=== PATIENT | male | born 1990 | race Caucasian/White ===

== ENCOUNTER → 2023-12-02 09:28 | Outpatient (REF) | payer OTHER, SELFPAY | LOC: HWRAD 09:28 | PROVIDERS: ATTENDING PHYSICIAN Internal Medicine Gastroenterology; FAMILY PHYSICIAN Family Medicine | DX: R74.8 Abnormal levels of other serum enzymes (principal) | CPT/HCPCS: 76700 ==

== ENCOUNTER 2024-05-29 12:13 | Emergency (ER) | payer OTHER, SELFPAY ==
[2024-05-29 12:20] VITALS: BP 141/97
[2024-05-29 12:49] LABS: % Basophils 0.5 % (0-2); % Eosinophils 1.1 % (0-6); % Immature Granulocytes 0.2 % (0-0.5); % Lymphocytes 40.9 % (20.5-51.1); % Monocytes 4.8 % (1.7-9.3); % Neutrophils 52.5 % (42.2-75.2); Absolute Basophils 0.1 10^3/uL (0-0.2); Absolute Eosinophils 0.1 10^3/uL (0-0.7); Absolute Lymphocytes 4.1 10^3/uL (1.2-3.4); Absolute Monocytes 0.5 10^3/uL (0.1-0.6); Absolute Neutrophils 5.2 10^3/uL (1.4-6.5); Hematocrit 43.7 % (39.0-52.0); Hemoglobin 15.5 g/dL (13.0-18.0); Mean Corp Hgb Conc. 35.5 g/dL (33.0-37.0); Mean Corpuscular Volume 84.7 fL (80.0-94.0); Mean Platelet Volume 9.1 fL (7.4-10.4); Nucleated Red Blood Cells % 0 % (-); Platelet Count 321 10^3/uL (130-400); Red Blood Cell Count 5.16 10^6/uL (4.70-6.10); Red Cell Dist. Width 12.6 % (11.5-14.5)
[2024-05-29 12:50] LABS: Urine Albumin Negative (Neg - Trace); Urine Bilirubin Negative (Negative); Urine Character Clear (Clear); Urine Color Yellow; Urine Glucose Negative (Negative); Urine Ketone Negative (Negative); Urine Leukocyte Negative (Negative); Urine Nitrite Negative (Negative); Urine Occult Blood Negative (Negative); Urine Specific Gravity 1.005 (<1.030); Urine Urobilinogen Negative (Neg - 1+)
[2024-05-29 13:16] LABS: ALT (SGPT) 57 U/L (0-50); AST (SGOT) 53 U/L (17-59); Albumin 5.1 g/dl (3.5-5.0); Alkaline Phosphatase 77 U/L (38-126); Blood Urea Nitrogen 12 mg/dl (9-20); Calcium 10.1 mg/dl (8.4-10.2); Carbon Dioxide 25 mmol/L (22-30); Chloride 101 mmol/L (98-107); Glucose 143 mg/dl (70-99); Potassium 4.1 mmol/L (3.5-5.1); Sodium 139 mmol/L (135-145); Total Protein 7.6 g/dl (6.3-8.2); eGFR > 60.00
--- NOTE | 2024-05-29 14:01 | ED.GENMED ---
History of Present Illness
General
Chief Complaint: Change in Mental Status
Source: patient
Exam Limitations: none
Time Seen by Provider: 05/29/24 13:44
History of Present Illness
History of Present Illness:
34-year-old male with history of autism and developmental delay presents from place of employment with change in mental status. 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 He was not responding to
questions as he normally would. They also noted him to be sweaty. Patient now with parents and parents that he is at his normal baseline. He gets 1.5 mg of Haldol solution twice a day. He is also on benztropine daily. No recent changes to this.
No cough or respiratory distress. Has been no vomiting. His appetites been good. No other complaints at this time
Past History
Past History
ED Past Medical History: Other (bipolar, autism)
Social History
Tobacco: Non-smoker
Alcohol: None
Drug: None
Family History
Family History: Negative Diabetes or Hypertension
Phy Exam
Physical Exam
Physical Exam:
General: Well-appearing male no acute respiratory distress
HEENT: Normocephalic atraumatic
Heart: Regular rate and rhythm no murmurs
Lungs: Clear no wheeze
Extremities: No cyanosis or edema
Neurologic exam: Alert and oriented to person place and time answering questions appropriately normal gait good muscle tone
Skin is warm without diaphoresis
Course
Orders/Labs/Results
Orders:
Orders
05/29/24 12:36
Complete Blood Count/With Diff Urgent
Comprehensive Metabolic Panel Urgent
Urinalysis Reflex To Culture Urgent
Date Specimen was Collected: 05/29/24
Time Specimen was Collected: 12:24
05/29/24 14:00
Electrocardiogram (*1) Urgent
Reason for Study: Fatigue / Weakness
EKG- Treatment ONCE
05/29/24 14:10
Troponin I Urgent
Abnormal Lab Results
05/29/24
12:36
Absolute Lymphs (auto) 4.1 H 10^3/uL
(1.2-3.4)
Glucose 143 H mg/dl
(70-99)
ALT 57 H U/L
(0-50)
Albumin 5.1 H g/dl
(3.5-5.0)
05/29/24 12:36
05/29/24 12:36
Vital Signs
Initial and Last Documented VS:
Initial Vital Signs
Temp Pulse Resp BP Pulse Ox
97.7 F 88 18 141/97 98
05/29/24 12:20 05/29/24 12:20 05/29/24 12:20 05/29/24 12:20 05/29/24 12:20
Last Documented Vital Signs
Temp Pulse Resp BP Pulse Ox
97.7 F 89 18 134/94 95
05/29/24 12:20 05/29/24 14:15 05/29/24 14:15 05/29/24 14:13 05/29/24 14:15
MDM/Problems Addressed
Differential Diagnosis Includes:
Patient presented with diaphoresis and change in mental status. Patient poor historian secondary to autistic and delayed state. Most of the history is obtained from the mother. Overall patient appears well. There is a strong cardiac history in
the family. On exam there is no signs of tenderness. He is not diaphoretic. Question possible heat related presentation. Will check EKG and troponin to ensure no cardiac involvement.
*Critical Care Note
Total Time (30-74mins, 75-104mins- exclusive of procedures): Not Applicable
Update Note
Update Note:
Workup here unremarkable. Patient baseline. No indication for any further intervention. EKG was reviewed shows sinus rhythm without ischemic changes. Troponin undetectable
ED Attending Note
-
Portions of this chart may have been created with voice recognition software.� Occasional wrong word or��sound alike� substitutions may have occurred due to the inherent limitations of voice recognition software.
Discharge Plan
Departure
Patient Disposition: Home (Routine Discharge)
Date of Disposition: 05/29/24
Time of Disposition: 14:54
Patient with high blood pressure during this ER visit?: No
Discharge Problem:
Altered mental status
Prescriptions:
No Action
lithium carbonate 300 MG tablet extended release
600 mg PO BID
quetiapine 100 MG tablet
300 mg PO HS
quetiapine 100 MG tablet
200 mg PO DAILY
guanfacine 1 MG tablet
1 mg PO DAILY
Patient Comments:
patient take 1.5mg in am and 1mg at 1400 daily
guanfacine [Tenex] 1 MG tablet
1.5 mg PO DAILY
Patient Comments:
patient takes 1.5mg in am and lmg daily at 1400
buspirone [BuSpar] 15 MG tablet
15 mg PO BID
Activity Restrictions/Additional Instructions:
Please return here if needed. Please follow-up with psychiatry as planned.
Interventions
Interventions:
*Risk Screen - Suicide Last Done: 05/29/24 14:16
*General Assessment Last Done: 05/29/24 14:16
*Neglect/Abuse Screening Last Done: 05/29/24 14:17
ED- Fall Risk Assessment Last Done: 05/29/24 14:16
ED- Neurological Assessment Last Done: 05/29/24 14:16
ED- Cardiac Assessment Last Done: 05/29/24 14:16
ED Swallowing Screen Last Done: 05/29/24 14:16
Discharge Date and Time
Print Language: FRENCH
[2024-05-29 14:13] VITALS: BP 134/94
[2024-05-29 14:41] LABS: Troponin I 0.027 ng/ml
== END 2024-05-29 15:00 | disposition home or self-care (01) ==
LOC: EMR 12:13
PROVIDERS: Emergency Medicine; Physician Assistant; EMERGENCY PHYSICIAN Emergency Medicine; FAMILY PHYSICIAN Family Medicine
DX: R41.82 Altered mental status, unspecified (principal); F84.0 Autistic disorder
CPT/HCPCS: 99283; 80053; 81003; 84484; 85025; 93005